=== PATIENT | female | born 1970 | race Caucasian/White ===

== ENCOUNTER 2021-09-13 12:04 | Inpatient (IN) | payer SELFPAY ==
[2021-09-13 12:48] LABS: Analyzer IN Cardio ER; Base Excess (BEa) -3.7 mEq/L (-2.0 to +3.0); CO2 Tension 32.5 mmHg (35.0-45.0); Calcium, Ionized (arterial) 1.06 mmol/L (1.12-1.30); Carboxyhemoglobin (COHb) 0.3 gm% (0.0-3.0); Hemoglobin (Hb) 13.4 g/dL (12.0-16.0); Potassium - ABG Lab 2.77 mmol/L (3.70-5.30); pH, Arterial 7.41 (7.35-7.45)
[2021-09-13 13:01] LABS: Puncture Site LRA
[2021-09-13 13:02] LABS: ALV-art Gradient 212.875 mmHg (0-20)
[2021-09-13] MEDS ORDERED: Propofol 1,000 MG/100 ML VIAL IV ONE (13:05)
[2021-09-13 13:09] LABS: Hemoglobin 13.3 g/dL (12.0-16.0); Mean Corpuscular HGB CONC 33.1 g/dL (32.0-36.0); Mean Corpuscular Hemoglobin 28.4 pg (27.0-31.0); Mean Corpuscular Volume 85.8 fL (78.0-98.0); Mean Platelet Volume 8.6 fL (7.4-10.4); Platelet Count 227 thou/uL (130-400); RBC Distribution Width 13.9 % (11.5-14.5); Red Blood Cell (RBC) Count 4.67 mill/uL (4.20-5.40); White Blood Cell (WBC) Count 20.3 thou/uL (4.8-10.8)
[2021-09-13 13:15] LABS: Bilirubin Negative (Negative); Blood, Urine 3+ (Negative); Clarity Turbid (Clear); Glucose, Urine (Dipstick) 150 mg/dL (Negative); Ketone, Urine Negative (Negative); Leukocyte Negative Leu/uL (Negative); Nitrite Negative (Negative); Protein, Urine (Dipstick) 100 mg/dL (Neg-Trace); Specific Gravity, Urine 1.017 (1.002-1.036); Urobilinogen Normal mg/dL (Less than 2); pH, Urine 6.5 (5.0-9.0)
[2021-09-13 13:20] LABS: Bacteria/HPF 1+ HPF (None Seen)
[2021-09-13 13:21] LABS: Transitional Epithelial 0-3 HPF (None Seen); WBC/HPF 0-3 HPF (0-3)
[2021-09-13 13:31] LABS: Band 17 % (5-11); Lymphocytes 3 % (21-51); MDiff Complete? YES; Metamyelocyte 1 % (0-0); Monocytes 9 % (0-10); Neutrophil 70 % (42-75); Platelet Morphology Comment Appears Adequate; RBC Morphology Normal
[2021-09-13 13:44] LABS: ALT (SGPT) 38 U/L (8-55); AST (SGOT) 71 U/L (5-34); Albumin 3.3 g/dL (3.5-5.0); Alkaline Phosphatase 94 U/L (40-110); Anion Gap 17 mmol/L (10-20); BUN (Urea Nitrogen) 45 mg/dL (9.8-20.1); Bilirubin, Total 1.8 mg/dL (0.2-1.2); Calc. Creatinine Clearance 0 mL/min (70-130); Calcium 8.5 mg/dL (7.8-10.44); Carbon Dioxide 22 mmol/L (22-29); Chloride 104 mmol/L (98-107); Globulin 2.5 g/dL (2.4-3.5); Glucose 134 mg/dL (70-105); Magnesium 1.9 mg/dL (1.6-2.6); Potassium 3.4 mmol/L (3.5-5.1); Protein, Total 5.8 g/dL (6.0-8.3); Sodium 140 mmol/L (136-145)
[2021-09-13 13:52] LABS: INR-International Normal Ratio 1.3; Prothrombin Time 16.2 sec (12.0-14.7)
[2021-09-13] MEDS ORDERED: Iopamidol-370 76% 500 ML 1 ML ONE (13:53)
[2021-09-13 14:03] LABS: CK (CPK) 5235 U/L (29-168)
[2021-09-13] MEDS ORDERED: Ventilator Sedation Protocol 1 EACH FS SCH (14:15)
[2021-09-13] MEDS ORDERED: Ondansetron PF 4 MG/2 ML Vial IVP PRN (14:15)
[2021-09-13] MEDS: Sodium Chloride 0.9% 1,000 ML IV SCH (14:30)
[2021-09-13 16:38] LABS: Lactic Acid 2.5 mmol/L (0.5-2.2)
[2021-09-13] MEDS ORDERED: Morphine 4 MG/ML VIAL SLOW IVP PRN (17:00)
[2021-09-13] MEDS ORDERED: Fentanyl CADD 100 ML IV SCH (17:00)
[2021-09-13] MEDS ORDERED: Piperacillin/Tazobactam 3.375 GM in Sodium Chloride 0.9% 100 ML IVPB SCH ×2 (17:00→18:00)
[2021-09-13] MEDS ORDERED: Propofol BOLUS 1,000 MG/100 ML VIAL IV PRN (17:00)
[2021-09-13] MEDS ORDERED: DISCONTINUE PREVIOUS NARCOTIC PAIN MEDICATIONS AND BENZODIAZEPINES FS SCH (17:00)
[2021-09-13] MEDS ORDERED: Propofol 1,000 MG/100 ML VIAL IV PRN (17:00)
[2021-09-13] MEDS ORDERED: Fentanyl BOLUS 250 ML IVPB PRN (17:00)
[2021-09-13] MEDS ORDERED: Lorazepam 2 MG/ML VIAL SLOW IVP PRN (17:00)
[2021-09-13 17:05] LABS: Troponin I 0.413 ng/mL (< 0.028)
[2021-09-13] MEDS ORDERED: Electrolyte Replacement Protocol 1 EACH FS ONE (17:06)
[2021-09-13] MEDS: hydrALAZINE 20 MG/ML VIAL SLOW IVP PRN ×2 (17:09→20:18)
[2021-09-13 20:17] LABS: Critical Call Chem Troponin I RESULT DECREASING; Troponin I 0.334 ng/mL (< 0.028)
[2021-09-13 20:43] LABS: Amphetamine Detected (NotDetected); Barbiturates Screen Not Detected (NotDetected); Benzodiazepine Screen Not Detected (NotDetected); Cocaine Metabolite Screen Not Detected (NotDetected); Methadone Not Detected (NotDetected); Methamphetamine Detected (NotDetected); Opiate Screen Not Detected (NotDetected); Oxycodone Screen Not Detected (NotDetected); Phencyclidine (PCP) Not Detected (NotDetected); THC/Cannabinoid Screen Not Detected (NotDetected); Tricyclic Screen Not Detected (NotDetected)
[2021-09-13] MEDS: Piperacillin/Tazobactam 3.375 GM in Sodium Chloride 0.9% 100 ML IVPB SCH (20:54)
[2021-09-13 21:32] LABS: SARS-CoV-2 NAA Rapid Test Not Detected (NotDetected)
[2021-09-13] MEDS: Labetalol HCl 100 MG/20 ML VIAL SLOW IVP PRN ×2 (21:45→23:31)
[2021-09-14] MEDS: Labetalol HCl 100 MG/20 ML VIAL SLOW IVP PRN ×3 (01:03→19:36)
[2021-09-14 03:19] LABS: #Lymphocytes 1.2 thou/uL (1.20-3.40); #Monocytes 1.4 thou/uL (0.11-0.59); #Neutrophils 17.8 thou/uL (1.40-6.50); %Eosinophils 0.1 % (0.0-10.0); %Monocytes 6.9 % (0.0-10.0); Mean Corpuscular HGB CONC 33.6 g/dL (32.0-36.0); Mean Corpuscular Hemoglobin 28.4 pg (27.0-31.0); Mean Corpuscular Volume 84.6 fL (78.0-98.0); Mean Platelet Volume 8.8 fL (7.4-10.4); Platelet Count 247 thou/uL (130-400); RBC Distribution Width 13.9 % (11.5-14.5); Red Blood Cell (RBC) Count 4.59 mill/uL (4.20-5.40); White Blood Cell (WBC) Count 20.4 thou/uL (4.8-10.8)
[2021-09-14 03:35] LABS: Lactic Acid 1.6 mmol/L (0.5-2.2)
[2021-09-14 03:40] LABS: ALT (SGPT) 55 U/L (8-55); AST (SGOT) 74 U/L (5-34); Albumin 3.3 g/dL (3.5-5.0); Alkaline Phosphatase 91 U/L (40-110); Anion Gap 18 mmol/L (10-20); BUN (Urea Nitrogen) 52 mg/dL (9.8-20.1); Bilirubin, Total 1.7 mg/dL (0.2-1.2); Calc. Creatinine Clearance 35 mL/min (70-130); Calcium 8.4 mg/dL (7.8-10.44); Carbon Dioxide 23 mmol/L (22-29); Chloride 107 mmol/L (98-107); Globulin 2.8 g/dL (2.4-3.5); Glucose 129 mg/dL (70-105); Protein, Total 6.1 g/dL (6.0-8.3); Sodium 145 mmol/L (136-145)
[2021-09-14 03:45] LABS: Potassium 2.8 mmol/L (3.5-5.1)
[2021-09-14 03:54] LABS: CK (CPK) 4544 U/L (29-168)
[2021-09-14] MEDS: Piperacillin/Tazobactam 3.375 GM in Sodium Chloride 0.9% 100 ML IVPB SCH ×3 (05:42→21:54)
[2021-09-14] MEDS: Sodium Chloride 0.9% 1,000 ML IV SCH (05:44)
[2021-09-14 07:25] LABS: Actual Bicarbonate (HCO3a) 20.7 mEq/L (22-28); Base Excess (BEa) -0.3 mEq/L (-2.0 to +3.0); Calcium, Ionized (arterial) 1.05 mmol/L (1.12-1.30); Carboxyhemoglobin (COHb) 0.3 gm% (0.0-3.0); Hemoglobin (Hb) 13.2 g/dL (12.0-16.0); Potassium - ABG Lab 2.63 mmol/L (3.70-5.30); pH, Arterial 7.54 (7.35-7.45)
[2021-09-14 07:26] LABS: CO2 Tension 24.8 mmHg (35.0-45.0); Puncture Site LRA
[2021-09-14] MEDS: Potassium Chloride 20 MEQ in Premix Bag 1 BAG IVPB SCH ×2 (07:58→11:35)
[2021-09-14] MEDS: Pantoprazole 40 MG VIAL IVP SCH (10:18)
[2021-09-14] MEDS: Metoclopramide HCl 10 MG/2 ML VIAL IVP SCH ×2 (10:19→17:07)
[2021-09-14] MEDS: Thiamine HCl 200 MG/2 ML VIAL SLOW IVP SCH (10:22)
[2021-09-14] MEDS: Dextrose 5 %-0.45 % NaCl 1,000 ML IV SCH ×2 (10:23→16:40)
[2021-09-14 11:48] VITALS: BMI 32.7
[2021-09-14] MEDS ORDERED: Acetaminophen 325 MG TAB PER TUBE PRN (13:00)
[2021-09-14 15:20] LABS: Potassium 3.2 mmol/L (3.5-5.1)
[2021-09-14] MEDS: Insulin Regular 300 UNITS/3 ML VIAL SC PRN (16:42)
[2021-09-14] MEDS: hydrALAZINE 20 MG/ML VIAL SLOW IVP PRN ×2 (19:50→20:27)
[2021-09-14] MEDS ORDERED: niCARdipine 25 MG in Sodium Chloride 0.9% 250 ML 250 ML IVPB SCH (20:15)
[2021-09-14] MEDS ORDERED: niCARdipine 20MG In NaCl 20 MG/200 ML BAG IVPB SCH (20:15)
[2021-09-14] MEDS ORDERED: niCARdipine 40MG In NaCl 40 MG/200 ML BAG IVPB SCH (20:15)
[2021-09-14] MEDS ORDERED: niCARdipine 50 MG in Sodium Chloride 0.9% 250 ML 230 ML IV SCH (20:15)
[2021-09-14] MEDS ORDERED: Norepinephrine 8 MG/0.9% NS 250 ML ONE ×2 (21:05→21:12)
[2021-09-14] MEDS ORDERED: Norepinephrine 8 MG/0.9% NS 250 ML IVPB SCH (21:30)
[2021-09-15] MEDS: Dextrose 5 %-0.45 % NaCl 1,000 ML IV SCH (00:03)
[2021-09-15] MEDS: Metoclopramide HCl 10 MG/2 ML VIAL IVP SCH ×2 (00:03→05:33)
[2021-09-15] MEDS: Mannitol 12.5 GM/50 ML SLOW IVP SCH ×2 (00:45→07:14)
[2021-09-15 02:05] VITALS: BP 143/91
[2021-09-15 02:19] VITALS: TEMP 96.6
[2021-09-15 05:13] LABS: ALT (SGPT) 54 U/L (8-55); AST (SGOT) 42 U/L (5-34); Albumin 3.4 g/dL (3.5-5.0); Alkaline Phosphatase 106 U/L (40-110); Anion Gap 13 mmol/L (10-20); BUN (Urea Nitrogen) 47 mg/dL (9.8-20.1); Calc. Creatinine Clearance 38 mL/min (70-130); Calcium 8.8 mg/dL (7.8-10.44); Carbon Dioxide 27 mmol/L (22-29); Chloride 111 mmol/L (98-107); Estimated GFR 21; Globulin 3.3 g/dL (2.4-3.5); Glucose 217 mg/dL (70-105); Potassium 3.1 mmol/L (3.5-5.1); Protein, Total 6.7 g/dL (6.0-8.3); Sodium 148 mmol/L (136-145)
[2021-09-15 05:15] LABS: Hemoglobin 12.5 g/dL (12.0-16.0); Lymphocytes 6 % (21-51); MDiff Complete? YES; Mean Corpuscular HGB CONC 32.4 g/dL (32.0-36.0); Mean Corpuscular Hemoglobin 28.4 pg (27.0-31.0); Mean Corpuscular Volume 87.6 fL (78.0-98.0); Mean Platelet Volume 8.9 fL (7.4-10.4); Monocytes 8 % (0-10); Neutrophil 86 % (42-75); Platelet Count 281 thou/uL (130-400); Platelet Morphology Comment Appears Adequate; RBC Distribution Width 14.2 % (11.5-14.5); RBC Morphology Normal; White Blood Cell (WBC) Count 23.1 thou/uL (4.8-10.8)
[2021-09-15] MEDS: Piperacillin/Tazobactam 3.375 GM in Sodium Chloride 0.9% 100 ML IVPB SCH (05:32)
[2021-09-15] MEDS: Insulin Regular 300 UNITS/3 ML VIAL SC PRN ×2 (06:40→10:16)
[2021-09-15 07:39] LABS: Base Excess (BEa) -1.6 mEq/L (-2.0 to +3.0); CO2 Tension 48.9 mmHg (35.0-45.0); Calcium, Ionized (arterial) 1.18 mmol/L (1.12-1.30); Carboxyhemoglobin (COHb) 0.6 gm% (0.0-3.0); Hemoglobin (Hb) 15.4 g/dL (12.0-16.0); O2 Tension (PaO2), arterial 115.5 mmHg (80.0-100.0); Potassium - ABG Lab 3.15 mmol/L (3.70-5.30); pH, Arterial 7.33 (7.35-7.45)
[2021-09-15] MEDS ORDERED: Dextrose 5% in Water 1,000 ML IV SCH (08:00)
[2021-09-15] MEDS ORDERED: Potassium Chloride 40 MEQ in Premix Bag 1 BAG IVPB SCH (08:00)
[2021-09-15 08:05] LABS: ALV-art Gradient 72.925 mmHg (0-20); Puncture Site RRA
[2021-09-15] MEDS: Pantoprazole 40 MG VIAL IVP SCH (09:48)
[2021-09-15] MEDS: Thiamine HCl 200 MG/2 ML VIAL SLOW IVP SCH (13:06)
== END 2021-09-15 12:00 | disposition expired | DRG 64 ==
LOC: ERS 12:04 → CCU 13:49
PROVIDERS: ADMIT Specialist; ATTEND Hospitalist
PROC: 0BH17EZ Insertion of Endotracheal Airway into Trachea, Via Natural or Artificial Opening (ICD-10-PCS; principal; 2021-09-13)
PROC: 5A1945Z Respiratory Ventilation, 24-96 Consecutive Hours (ICD-10-PCS; 2021-09-13)
PROC: 3E03329 Introduction of Other Anti-infective into Peripheral Vein, Percutaneous Approach (ICD-10-PCS; 2021-09-13)
PROC: 3E033XZ Introduction of Vasopressor into Peripheral Vein, Percutaneous Approach (ICD-10-PCS; 2021-09-13)
PROC: 0D9670Z Drainage of Stomach with Drainage Device, Via Natural or Artificial Opening (ICD-10-PCS; 2021-09-13)
PROC: 06HY33Z Insertion of Infusion Device into Lower Vein, Percutaneous Approach (ICD-10-PCS; 2021-09-14)
PROC: 3E043XZ Introduction of Vasopressor into Central Vein, Percutaneous Approach (ICD-10-PCS; 2021-09-14)
PROC: 03HY32Z Insertion of Monitoring Device into Upper Artery, Percutaneous Approach (ICD-10-PCS; 2021-09-15)
DX: I61.5 Nontraumatic intracerebral hemorrhage, intraventricular (principal); A41.9 Sepsis, unspecified organism; J96.01 Acute respiratory failure with hypoxia; G93.41 Metabolic encephalopathy; R65.20 Severe sepsis without septic shock; J69.0 Pneumonitis due to inhalation of food and vomit; G93.5 Compression of brain; G93.6 Cerebral edema; E87.2 Acidosis; N17.9 Acute kidney failure, unspecified; M62.82 Rhabdomyolysis; N39.0 Urinary tract infection, site not specified; I24.8 Other forms of acute ischemic heart disease; E87.1 Hypo-osmolality and hyponatremia; Z51.5 Encounter for palliative care; Z20.822 Contact with and (suspected) exposure to COVID-19; F41.9 Anxiety disorder, unspecified; F32.A Depression, unspecified; I10 Essential (primary) hypertension; E87.6 Hypokalemia; Z78.1 Physical restraint status; Z28.311 Partially vaccinated for COVID-19; Z98.1 Arthrodesis status; Z98.890 Other specified postprocedural states; L89.520 Pressure ulcer of left ankle, unstageable; L89.159 Pressure ulcer of sacral region, unspecified stage; L89.109 Pressure ulcer of unspecified part of back, unspecified stage
CPT/HCPCS: 36415; 36416; 36600; 70450; 71045; 71260; 72125; 74177; 78610; 80053; 80306; 81015; 82550; 82805; 83605; 83735; 83880; 83930; 84443; 85025; 87086; 93005; 94002; 94003; 96374; 97139; A9521; C9113; J0360; J1815; J2543; J2704; J2765; J3411; J3480; J3490; J7042; J7050; J7070; J7799; Q9967

== ENCOUNTER 2021-09-15 12:00 | Day surgery (SDC) | payer OTHER ==
[2021-09-15] MEDS ORDERED: Refresh Lacri-lube Opth Oint 7 GM TUBE FS SCH (14:45)
[2021-09-15] MEDS ORDERED: Hydrocortisone Sod Succ/PF 500 mg/4 ml Vial SLOW IVP SCH ×2 (14:45)
[2021-09-15 14:48] LABS: Actual Bicarbonate (HCO3a) 25.8 mEq/L (22-28); Base Excess (BEa) 0.3 mEq/L (-2.0 to +3.0); CO2 Tension 45.1 mmHg (35.0-45.0); Calcium, Ionized (arterial) 1.22 mmol/L (1.12-1.30); Carboxyhemoglobin (COHb) 0.6 gm% (0.0-3.0); Hemoglobin (Hb) 12.4 g/dL (12.0-16.0); O2 Tension (PaO2), arterial 106.3 mmHg (80.0-100.0); Potassium - ABG Lab 3.48 mmol/L (3.70-5.30); pH, Arterial 7.38 (7.35-7.45)
[2021-09-15 14:49] LABS: ALV-art Gradient 86.875 mmHg (0-20); Puncture Site RRA
[2021-09-15 14:57] LABS: Hemoglobin 11.7 g/dL (12.0-16.0); Mean Corpuscular HGB CONC 31.5 g/dL (32.0-36.0); Mean Corpuscular Hemoglobin 27.7 pg (27.0-31.0); Mean Corpuscular Volume 88.1 fL (78.0-98.0); Mean Platelet Volume 8.8 fL (7.4-10.4); Platelet Count 253 thou/uL (130-400); RBC Distribution Width 14.3 % (11.5-14.5); Red Blood Cell (RBC) Count 4.23 mill/uL (4.20-5.40); White Blood Cell (WBC) Count 16.4 thou/uL (4.8-10.8)
[2021-09-15 15:14] LABS: Band 6 % (5-11); INR-International Normal Ratio 1.2; Lymphocytes 8 % (21-51); MDiff Complete? YES; Metamyelocyte 1 % (0-0); Monocytes 4 % (0-10); Neutrophil 81 % (42-75); PTT 30.7 sec (22.9-36.1); Platelet Morphology Comment Appears Adequate; Polychromasia SLIGHT = 2-3 cells (100X) (0-2/hpf); Prothrombin Time 15.8 sec (12.0-14.7)
[2021-09-15 15:16] LABS: Lactic Acid 0.9 mmol/L (0.5-2.2)
[2021-09-15 15:19] LABS: Phosphorus 3.1 mg/dL (2.3-4.7)
[2021-09-15] MEDS: Phytonadione 10 MG/ML AMP SLOW IVP SCH ×2 (15:19→19:24)
[2021-09-15 15:22] LABS: ALT (SGPT) 47 U/L (8-55); AST (SGOT) 29 U/L (5-34); Albumin 3.3 g/dL (3.5-5.0); Alkaline Phosphatase 96 U/L (40-110); Anion Gap 14 mmol/L (10-20); BUN (Urea Nitrogen) 43 mg/dL (9.8-20.1); Bilirubin, Total 0.7 mg/dL (0.2-1.2); Calc. Creatinine Clearance 0 mL/min (70-130); Carbon Dioxide 25 mmol/L (22-29); Chloride 120 mmol/L (98-107); Estimated GFR 26; Globulin 3.1 g/dL (2.4-3.5); Glucose 160 mg/dL (70-105); Magnesium 2.9 mg/dL (1.6-2.6); Potassium 3.5 mmol/L (3.5-5.1); Protein, Total 6.4 g/dL (6.0-8.3); Sodium 155 mmol/L (136-145)
[2021-09-15 15:26] LABS: Hemoglobin A1c 5.5 % (4.0-6.0)
[2021-09-15 15:37] LABS: Bilirubin, Direct 0.3 mg/dL (0.1-0.3)
[2021-09-15 15:47] LABS: Bacteria/HPF None Seen HPF (None Seen); Bilirubin Negative (Negative); Blood, Urine 1+ (Negative); Clarity Clear (Clear); Glucose, Urine (Dipstick) Normal (Negative); Ketone, Urine Negative (Negative); Leukocyte Negative Leu/uL (Negative); Nitrite Negative (Negative); Protein, Urine (Dipstick) Negative (Neg-Trace); RBC/HPF 0-3 HPF (0-3); Specific Gravity, Urine 1.014 (1.002-1.036); Squamous Epithelial None Seen HPF (0-3); Urobilinogen Normal mg/dL (Less than 2); WBC/HPF 0-3 HPF (0-3); pH, Urine 5.5 (5.0-9.0)
[2021-09-15 16:11] VITALS: BMI 30.6
[2021-09-15] MEDS ORDERED: Sodium Phosphate 20 MMOL in Sodium Chloride 0.9% 100 ML IVPB SCH (16:30)
[2021-09-15] MEDS ORDERED: Calcium Gluconate 9.2 MEQ in Sodium Chloride 0.9% 100 ML IVPB SCH (16:30)
[2021-09-15] MEDS ORDERED: SODIUM PHOSPHATE IVPB SCH (16:30)
[2021-09-15] MEDS ORDERED: Calcium Gluconate 13.8 MEQ in Sodium Chloride 0.9% 100 ML IVPB SCH (16:30)
[2021-09-15] MEDS ORDERED: POTASSIUM PHOSPHATE IVPB SCH (16:30)
[2021-09-15] MEDS ORDERED: Magnesium 2 GM/50 ML(in water) 2 GM in Premix Bag 1 BAG IVPB SCH (16:30)
[2021-09-15] MEDS ORDERED: Magnesium 2 GM/50 ML(in water) 4 GM in Premix Bag 1 BAG IVPB SCH (16:30)
[2021-09-15] MEDS ORDERED: Sodium Phosphate 30 MMOL in Sodium Chloride 0.9% 100 ML IVPB SCH (16:30)
[2021-09-15] MEDS ORDERED: Potassium Phosphate 30 MMOL in Sodium Chloride 0.9% 100 ML IVPB SCH (16:30)
[2021-09-15] MEDS ORDERED: SODIUM CHLORIDE 0.9% IVPB SCH ×2 (16:30)
[2021-09-15] MEDS ORDERED: Potassium Chloride 20 MEQ in Premix Bag 1 BAG IVPB SCH (16:45)
[2021-09-15] MEDS: Potassium Chloride 20 MEQ in Premix Bag 1 BAG IVPB SCH ×4 (16:51→17:35)
[2021-09-15] MEDS: Piperacillin/Tazobactam 3.375 GM in Sodium Chloride 0.9% 100 ML IVPB SCH ×2 (16:58→23:12)
[2021-09-15] MEDS ORDERED: Calcium Gluconate 9.2 MEQ in Sodium Chloride 0.9% 100 ML IVPB PRN (17:45)
[2021-09-15] MEDS ORDERED: Magnesium 2 GM/50 ML(in water) 2 GM in Premix Bag 1 BAG IVPB PRN (17:45)
[2021-09-15] MEDS ORDERED: Potassium Chloride 20 MEQ in Premix Bag 1 BAG IVPB PRN ×3 (17:45)
[2021-09-15] MEDS ORDERED: Magnesium 2 GM/50 ML(in water) 4 GM in Premix Bag 1 BAG IVPB PRN (17:45)
[2021-09-15] MEDS ORDERED: Calcium Gluconate 13.8 MEQ in Sodium Chloride 0.9% 100 ML IVPB PRN (17:45)
[2021-09-15 18:29] VITALS: TEMP 94.5
[2021-09-15] MEDS: Albuterol Sulfate 2.5 mg/0.5 ml Neb NEB SCH ×2 (19:00→21:44)
[2021-09-15 21:38] LABS: INR-International Normal Ratio 1.2; PTT 32.7 sec (22.9-36.1); Prothrombin Time 15.5 sec (12.0-14.7)
[2021-09-15 21:41] LABS: Band 12 % (5-11); Hemoglobin 12.3 g/dL (12.0-16.0); Lymphocytes 4 % (21-51); MDiff Complete? YES; Mean Corpuscular HGB CONC 31.8 g/dL (32.0-36.0); Mean Corpuscular Hemoglobin 28.1 pg (27.0-31.0); Mean Corpuscular Volume 88.3 fL (78.0-98.0); Monocytes 2 % (0-10); Neutrophil 82 % (42-75); Platelet Count 301 thou/uL (130-400); RBC Distribution Width 14.4 % (11.5-14.5); Red Blood Cell (RBC) Count 4.39 mill/uL (4.20-5.40); White Blood Cell (WBC) Count 20.2 thou/uL (4.8-10.8)
[2021-09-15 21:43] LABS: Lactic Acid 1.3 mmol/L (0.5-2.2)
[2021-09-15 21:47] LABS: ALT (SGPT) 51 U/L (8-55); AST (SGOT) 28 U/L (5-34); Albumin 3.6 g/dL (3.5-5.0); Alkaline Phosphatase 101 U/L (40-110); Anion Gap 16 mmol/L (10-20); BUN (Urea Nitrogen) 41 mg/dL (9.8-20.1); Bilirubin, Direct 0.4 mg/dL (0.1-0.3); Bilirubin, Total 0.9 mg/dL (0.2-1.2); CK (CPK) 948 U/L (29-168); Calc. Creatinine Clearance 47 mL/min (70-130); Calcium 8.8 mg/dL (7.8-10.44); Carbon Dioxide 23 mmol/L (22-29); Chloride 121 mmol/L (98-107); Estimated GFR 28; Globulin 2.6 g/dL (2.4-3.5); Glucose 234 mg/dL (70-105); Lipase 40 U/L (8-78); Magnesium 2.8 mg/dL (1.6-2.6); Phosphorus 2.8 mg/dL (2.3-4.7); Potassium 3.8 mmol/L (3.5-5.1); Protein, Total 6.2 g/dL (6.0-8.3); Sodium 156 mmol/L (136-145)
[2021-09-15 21:50] LABS: CKMB 4.8 ng/mL (0-6.6); Troponin I 0.191 ng/mL (< 0.028)
[2021-09-15 22:13] LABS: Actual Bicarbonate (HCO3a) 24.8 mEq/L (22-28); Base Excess (BEa) 1.8 mEq/L (-2.0 to +3.0); CO2 Tension 33.6 mmHg (35.0-45.0); Carboxyhemoglobin (COHb) 0.1 gm% (0.0-3.0); Hemoglobin (Hb) 12.6 g/dL (12.0-16.0); O2 Tension (PaO2), arterial 433.5 mmHg (80.0-100.0); Potassium - ABG Lab 3.65 mmol/L (3.70-5.30); pH, Arterial 7.49 (7.35-7.45)
[2021-09-15 22:26] LABS: Puncture Site Arterial Line
[2021-09-15] MEDS: Hydrocortisone Sod Succ/PF 100 mg/2 ml Vial IVP SCH (22:35)
[2021-09-15] MEDS: Sodium Chloride 0.45% 1,000 ML IV SCH (23:05)
[2021-09-16] MEDS: Albuterol Sulfate 2.5 mg/0.5 ml Neb NEB SCH ×6 (02:25→21:49)
[2021-09-16 03:14] LABS: Actual Bicarbonate (HCO3a) 22.1 mEq/L (22-28); Base Excess (BEa) -0.6 mEq/L (-2.0 to +3.0); CO2 Tension 30.5 mmHg (35.0-45.0); Calcium, Ionized (arterial) 1.19 mmol/L (1.12-1.30); Carboxyhemoglobin (COHb) 0.1 gm% (0.0-3.0); Hemoglobin (Hb) 12.3 g/dL (12.0-16.0); Potassium - ABG Lab 3.68 mmol/L (3.70-5.30); pH, Arterial 7.48 (7.35-7.45)
[2021-09-16 03:17] LABS: ALV-art Gradient 254.875 mmHg (0-20); Puncture Site Arterial Line
[2021-09-16 04:01] LABS: #Lymphocytes 0.9 thou/uL (1.20-3.40); #Monocytes 0.9 thou/uL (0.11-0.59); #Neutrophils 15.2 thou/uL (1.40-6.50); %Basophils 0.2 % (0.0-1.0); %Lymphocytes 5.4 % (21.0-51.0); %Neutrophils 89.4 % (42.0-75.0); Hemoglobin 11.7 g/dL (12.0-16.0); Mean Corpuscular HGB CONC 32.2 g/dL (32.0-36.0); Mean Corpuscular Hemoglobin 28.5 pg (27.0-31.0); Mean Corpuscular Volume 88.5 fL (78.0-98.0); Mean Platelet Volume 9.1 fL (7.4-10.4); Platelet Count 254 thou/uL (130-400); RBC Distribution Width 14.3 % (11.5-14.5)
[2021-09-16 04:17] LABS: Lactic Acid 1.7 mmol/L (0.5-2.2)
[2021-09-16 04:19] LABS: RBC/HPF 0-3 HPF (0-3); Squamous Epithelial 0-3 HPF (0-3)
[2021-09-16 04:22] LABS: ALT (SGPT) 44 U/L (8-55); AST (SGOT) 21 U/L (5-34); Albumin 3.5 g/dL (3.5-5.0); Alkaline Phosphatase 94 U/L (40-110); Anion Gap 18 mmol/L (10-20); BUN (Urea Nitrogen) 43 mg/dL (9.8-20.1); Bacteria/HPF 1+ HPF (None Seen); Bilirubin, Direct 0.3 mg/dL (0.1-0.3); Bilirubin, Total 0.7 mg/dL (0.2-1.2); CK (CPK) 581 U/L (29-168); Calc. Creatinine Clearance 48 mL/min (70-130); Calcium 9.3 mg/dL (7.8-10.44); Carbon Dioxide 23 mmol/L (22-29); Chloride 123 mmol/L (98-107); Estimated GFR 29; Globulin 3.3 g/dL (2.4-3.5); Glucose 205 mg/dL (70-105); Lipase 44 U/L (8-78); Magnesium 2.7 mg/dL (1.6-2.6); Phosphorus 3.3 mg/dL (2.3-4.7); Potassium 3.7 mmol/L (3.5-5.1); Protein, Total 6.8 g/dL (6.0-8.3); Sodium 160 mmol/L (136-145)
[2021-09-16 04:26] LABS: CKMB 3.1 ng/mL (0-6.6); Troponin I 0.241 ng/mL (< 0.028)
[2021-09-16 04:27] LABS: INR-International Normal Ratio 1.2; PTT 32.3 sec (22.9-36.1); Prothrombin Time 15.8 sec (12.0-14.7)
[2021-09-16] MEDS: Piperacillin/Tazobactam 3.375 GM in Sodium Chloride 0.9% 100 ML IVPB SCH ×3 (05:54→19:36)
[2021-09-16] MEDS: Hydrocortisone Sod Succ/PF 100 mg/2 ml Vial IVP SCH ×3 (05:54→21:14)
[2021-09-16] MEDS: HUMULIN R 100 UNITS in Sodium Chloride 0.9% 100 ML IVPB SCH (05:54)
[2021-09-16] MEDS ORDERED: Iopamidol 370 76% 100 ML VIAL ONE (08:51)
[2021-09-16] MEDS ORDERED: Iopamidol 370 76% 50 ML VIAL FS ONE (08:51)
[2021-09-16 09:03] LABS: Actual Bicarbonate (HCO3a) 24.7 mEq/L (22-28); Base Excess (BEa) 0.6 mEq/L (-2.0 to +3.0); CO2 Tension 37.8 mmHg (35.0-45.0); Carboxyhemoglobin (COHb) 0.3 gm% (0.0-3.0); Hemoglobin (Hb) 11.5 g/dL (12.0-16.0); O2 Tension (PaO2), arterial 365.9 mmHg (80.0-100.0); pH, Arterial 7.43 (7.35-7.45)
[2021-09-16 09:14] LABS: Puncture Site Arterial Line
[2021-09-16] MEDS: Sodium Chloride 0.45% 1,000 ML IV SCH ×2 (10:55→21:14)
[2021-09-16 12:14] LABS: #Monocytes 1.1 thou/uL (0.11-0.59); #Neutrophils 15.4 thou/uL (1.40-6.50); %Basophils 0.1 % (0.0-1.0); %Lymphocytes 5.9 % (21.0-51.0); %Monocytes 6.2 % (0.0-10.0); %Neutrophils 87.7 % (42.0-75.0); Hemoglobin 11.1 g/dL (12.0-16.0); Mean Corpuscular HGB CONC 31.8 g/dL (32.0-36.0); Mean Corpuscular Hemoglobin 28.4 pg (27.0-31.0); Mean Corpuscular Volume 89.5 fL (78.0-98.0); Mean Platelet Volume 8.9 fL (7.4-10.4); Platelet Count 242 thou/uL (130-400); RBC Distribution Width 14.2 % (11.5-14.5); White Blood Cell (WBC) Count 17.5 thou/uL (4.8-10.8)
[2021-09-16 12:21] LABS: Actual Bicarbonate (HCO3a) 24.6 mEq/L (22-28); Base Excess (BEa) 0.7 mEq/L (-2.0 to +3.0); Calcium, Ionized (arterial) 1.19 mmol/L (1.12-1.30); Carboxyhemoglobin (COHb) 0.1 gm% (0.0-3.0); Hemoglobin (Hb) 11.4 g/dL (12.0-16.0); O2 Tension (PaO2), arterial 100.7 mmHg (80.0-100.0); Potassium - ABG Lab 4.07 mmol/L (3.70-5.30); pH, Arterial 7.44 (7.35-7.45)
[2021-09-16 12:35] LABS: INR-International Normal Ratio 1.3; Prothrombin Time 16.3 sec (12.0-14.7)
[2021-09-16 12:36] LABS: Bilirubin, Direct 0.3 mg/dL (0.1-0.3); PTT 31.5 sec (22.9-36.1); Phosphorus 3.9 mg/dL (2.3-4.7)
[2021-09-16 12:38] LABS: ALT (SGPT) 40 U/L (8-55); AST (SGOT) 18 U/L (5-34); Albumin 3.4 g/dL (3.5-5.0); Alkaline Phosphatase 98 U/L (40-110); Anion Gap 15 mmol/L (10-20); BUN (Urea Nitrogen) 45 mg/dL (9.8-20.1); Bilirubin, Total 0.7 mg/dL (0.2-1.2); CK (CPK) 356 U/L (29-168); Calc. Creatinine Clearance 43 mL/min (70-130); Calcium 9.6 mg/dL (7.8-10.44); Carbon Dioxide 27 mmol/L (22-29); Chloride 121 mmol/L (98-107); Estimated GFR 27; Globulin 3.3 g/dL (2.4-3.5); Glucose 150 mg/dL (70-105); Potassium 4.2 mmol/L (3.5-5.1); Protein, Total 6.7 g/dL (6.0-8.3); Sodium 159 mmol/L (136-145)
[2021-09-16 12:39] LABS: Magnesium 2.8 mg/dL (1.6-2.6)
[2021-09-16 13:43] LABS: Bilirubin Negative (Negative); Blood, Urine Trace (Negative); Clarity Clear (Clear); Glucose, Urine (Dipstick) Normal (Negative); Ketone, Urine Negative (Negative); Leukocyte Negative Leu/uL (Negative); Nitrite Negative (Negative); Protein, Urine (Dipstick) 10 mg/dL (Neg-Trace); RBC/HPF 0-3 HPF (0-3); Specific Gravity, Urine 1.014 (1.002-1.036); Squamous Epithelial 0-3 HPF (0-3); Urobilinogen Normal mg/dL (Less than 2); WBC/HPF 0-3 HPF (0-3); pH, Urine 5.5 (5.0-9.0)
[2021-09-16 13:46] LABS: Bacteria/HPF 1+ HPF (None Seen); Urine Culture Reflex Yes Yes
[2021-09-16 14:09] LABS: Puncture Site Arterial Line
[2021-09-16] MEDS ORDERED: Labetalol HCl 100 MG/20 ML VIAL SLOW IVP PRN (14:11)
[2021-09-16 17:54] LABS: Actual Bicarbonate (HCO3a) 23.1 mEq/L (22-28); Base Excess (BEa) -0.8 mEq/L (-2.0 to +3.0); Calcium, Ionized (arterial) 1.17 mmol/L (1.12-1.30); Carboxyhemoglobin (COHb) 0.3 gm% (0.0-3.0); Hemoglobin (Hb) 10.3 g/dL (12.0-16.0); O2 Tension (PaO2), arterial 352.6 mmHg (80.0-100.0); Potassium - ABG Lab 3.73 mmol/L (3.70-5.30); pH, Arterial 7.44 (7.35-7.45)
[2021-09-16 17:55] LABS: Puncture Site Arterial Line
[2021-09-16 18:39] LABS: INR-International Normal Ratio 1.3; Lactic Acid 1.4 mmol/L (0.5-2.2); PTT 32.8 sec (22.9-36.1)
[2021-09-16 18:43] LABS: ALT (SGPT) 36 U/L (8-55); AST (SGOT) 16 U/L (5-34); Albumin 3.2 g/dL (3.5-5.0); Alkaline Phosphatase 91 U/L (40-110); Anion Gap 14 mmol/L (10-20); BUN (Urea Nitrogen) 48 mg/dL (9.8-20.1); Bilirubin, Direct 0.3 mg/dL (0.1-0.3); Bilirubin, Total 0.6 mg/dL (0.2-1.2); CK (CPK) 319 U/L (29-168); Calc. Creatinine Clearance 46 mL/min (70-130); Calcium 9.1 mg/dL (7.8-10.44); Carbon Dioxide 25 mmol/L (22-29); Chloride 122 mmol/L (98-107); Estimated GFR 29; Globulin 2.9 g/dL (2.4-3.5); Glucose 180 mg/dL (70-105); Magnesium 2.7 mg/dL (1.6-2.6); Phosphorus 3.9 mg/dL (2.3-4.7); Potassium 3.9 mmol/L (3.5-5.1); Protein, Total 6.1 g/dL (6.0-8.3); Sodium 157 mmol/L (136-145)
[2021-09-16 18:48] LABS: CKMB 1.8 ng/mL (0-6.6)
[2021-09-16 19:01] LABS: Bacteria/HPF None Seen HPF (None Seen); RBC/HPF 0-3 HPF (0-3); Squamous Epithelial None Seen HPF (0-3); WBC/HPF None Seen HPF (0-3)
[2021-09-16 19:02] LABS: Bilirubin Negative (Negative); Blood, Urine Trace (Negative); Glucose, Urine (Dipstick) Negative (Negative); Ketone, Urine Negative (Negative); Leukocyte Negative (Negative); Nitrite Negative (Negative); Protein, Urine (Dipstick) Negative (Neg-Trace); Urobilinogen 0.2 mg/dL (Less than 2); pH, Urine 5.5 (5.0-9.0)
[2021-09-16 19:05] LABS: Critical Call Chem Troponin I RESULT DECREASING
[2021-09-16 19:05] LABS: Clarity Clear (Clear)
[2021-09-16 19:06] LABS: Specific Gravity, Urine 1.023 (1.002-1.036)
[2021-09-16 22:05] LABS: #Lymphocytes 1.4 thou/uL (1.20-3.40); #Monocytes 1.4 thou/uL (0.11-0.59); #Neutrophils 14.8 thou/uL (1.40-6.50); %Eosinophils 0.1 % (0.0-10.0); %Lymphocytes 8.1 % (21.0-51.0); %Monocytes 7.7 % (0.0-10.0); %Neutrophils 84.1 % (42.0-75.0); Hemoglobin 10.2 g/dL (12.0-16.0); Mean Corpuscular HGB CONC 32.1 g/dL (32.0-36.0); Mean Corpuscular Hemoglobin 28.5 pg (27.0-31.0); Mean Corpuscular Volume 88.8 fL (78.0-98.0); Mean Platelet Volume 9.1 fL (7.4-10.4); Platelet Count 241 thou/uL (130-400); RBC Distribution Width 14.2 % (11.5-14.5); Red Blood Cell (RBC) Count 3.59 mill/uL (4.20-5.40); White Blood Cell (WBC) Count 17.7 thou/uL (4.8-10.8)
[2021-09-16 22:24] LABS: Actual Bicarbonate (HCO3a) 23.1 mEq/L (22-28); Base Excess (BEa) -0.5 mEq/L (-2.0 to +3.0); CO2 Tension 33.8 mmHg (35.0-45.0); Calcium, Ionized (arterial) 1.19 mmol/L (1.12-1.30); Carboxyhemoglobin (COHb) 0.3 gm% (0.0-3.0); Hemoglobin (Hb) 10.2 g/dL (12.0-16.0); O2 Tension (PaO2), arterial 365.4 mmHg (80.0-100.0); Potassium - ABG Lab 3.75 mmol/L (3.70-5.30); pH, Arterial 7.45 (7.35-7.45)
[2021-09-16 22:26] LABS: Puncture Site Arterial Line
[2021-09-16 23:56] LABS: #Neutrophils 13.5 thou/uL (1.40-6.50); %Basophils 0.2 % (0.0-1.0); %Eosinophils 0.1 % (0.0-10.0); %Lymphocytes 6.2 % (21.0-51.0); %Monocytes 6.4 % (0.0-10.0); %Neutrophils 87.1 % (42.0-75.0); Hemoglobin 10.3 g/dL (12.0-16.0); Mean Corpuscular HGB CONC 31.7 g/dL (32.0-36.0); Mean Corpuscular Hemoglobin 28.3 pg (27.0-31.0); Mean Corpuscular Volume 89.1 fL (78.0-98.0); Mean Platelet Volume 9.1 fL (7.4-10.4); Platelet Count 230 thou/uL (130-400); RBC Distribution Width 14.2 % (11.5-14.5); Red Blood Cell (RBC) Count 3.64 mill/uL (4.20-5.40); White Blood Cell (WBC) Count 15.5 thou/uL (4.8-10.8)
[2021-09-17 00:09] LABS: INR-International Normal Ratio 1.3; PTT 35.1 sec (22.9-36.1); Prothrombin Time 16.2 sec (12.0-14.7)
[2021-09-17 00:12] LABS: Lactic Acid 1.2 mmol/L (0.5-2.2)
[2021-09-17 00:20] LABS: ALT (SGPT) 36 U/L (8-55); AST (SGOT) 15 U/L (5-34); Albumin 3.2 g/dL (3.5-5.0); Alkaline Phosphatase 94 U/L (40-110); Anion Gap 16 mmol/L (10-20); BUN (Urea Nitrogen) 51 mg/dL (9.8-20.1); Bilirubin, Direct 0.3 mg/dL (0.1-0.3); Bilirubin, Total 0.6 mg/dL (0.2-1.2); CK (CPK) 256 U/L (29-168); Calc. Creatinine Clearance 45 mL/min (70-130); Calcium 9.3 mg/dL (7.8-10.44); Carbon Dioxide 24 mmol/L (22-29); Chloride 124 mmol/L (98-107); Estimated GFR 28; Globulin 3.1 g/dL (2.4-3.5); Glucose 163 mg/dL (70-105); Magnesium 2.8 mg/dL (1.6-2.6); Phosphorus 4.1 mg/dL (2.3-4.7); Potassium 3.8 mmol/L (3.5-5.1); Protein, Total 6.3 g/dL (6.0-8.3); Sodium 160 mmol/L (136-145)
[2021-09-17 00:21] LABS: CKMB 1.6 ng/mL (0-6.6)
[2021-09-17] MEDS: Albuterol Sulfate 2.5 mg/0.5 ml Neb NEB SCH ×6 (01:36→22:54)
[2021-09-17 01:57] LABS: Bilirubin Negative (Negative); Blood, Urine Trace (Negative); Clarity Clear (Clear); Glucose, Urine (Dipstick) Normal (Negative); Ketone, Urine Negative (Negative); Leukocyte Negative Leu/uL (Negative); Nitrite Negative (Negative); Protein, Urine (Dipstick) Negative (Neg-Trace); RBC/HPF 0-3 HPF (0-3); Specific Gravity, Urine 1.016 (1.002-1.036); Squamous Epithelial None Seen HPF (0-3); Urobilinogen Normal mg/dL (Less than 2); WBC/HPF 0-3 HPF (0-3); pH, Urine 5.5 (5.0-9.0)
[2021-09-17 01:59] LABS: Bacteria/HPF 1+ HPF (None Seen)
[2021-09-17] MEDS ORDERED: Potassium Chloride 20 MEQ in Premix Bag 1 BAG IVPB SCH (02:00)
[2021-09-17] MEDS: Piperacillin/Tazobactam 3.375 GM in Sodium Chloride 0.9% 100 ML IVPB SCH ×5 (05:21→23:12)
[2021-09-17] MEDS: Hydrocortisone Sod Succ/PF 100 mg/2 ml Vial IVP SCH ×3 (05:22→22:08)
[2021-09-17 06:32] LABS: Base Excess (BEa) 1.6 mEq/L (-2.0 to +3.0); CO2 Tension 34.7 mmHg (35.0-45.0); Calcium, Ionized (arterial) 1.15 mmol/L (1.12-1.30); Carboxyhemoglobin (COHb) 0.3 gm% (0.0-3.0); Hemoglobin (Hb) 9.6 g/dL (12.0-16.0); Potassium - ABG Lab 3.66 mmol/L (3.70-5.30); pH, Arterial 7.48 (7.35-7.45)
[2021-09-17] MEDS: Sodium Chloride 0.45% 1,000 ML IV SCH ×3 (06:40→23:12)
[2021-09-17 06:52] LABS: #Lymphocytes 1.1 thou/uL (1.20-3.40); #Neutrophils 13.1 thou/uL (1.40-6.50); %Basophils 0.2 % (0.0-1.0); %Eosinophils 0.1 % (0.0-10.0); %Lymphocytes 7.5 % (21.0-51.0); %Monocytes 6.4 % (0.0-10.0); %Neutrophils 85.8 % (42.0-75.0); Hemoglobin 9.5 g/dL (12.0-16.0); Mean Corpuscular HGB CONC 32.1 g/dL (32.0-36.0); Mean Corpuscular Hemoglobin 28.5 pg (27.0-31.0); Mean Corpuscular Volume 88.7 fL (78.0-98.0); Mean Platelet Volume 9.3 fL (7.4-10.4); Platelet Count 202 thou/uL (130-400); RBC Distribution Width 14.2 % (11.5-14.5); Red Blood Cell (RBC) Count 3.33 mill/uL (4.20-5.40); White Blood Cell (WBC) Count 15.2 thou/uL (4.8-10.8)
[2021-09-17 06:55] LABS: INR-International Normal Ratio 1.3; PTT 35.6 sec (22.9-36.1); Prothrombin Time 16.1 sec (12.0-14.7)
[2021-09-17 07:07] LABS: Lactic Acid 1.4 mmol/L (0.5-2.2)
[2021-09-17 07:13] LABS: ALT (SGPT) 38 U/L (8-55); AST (SGOT) 21 U/L (5-34); Albumin 3.2 g/dL (3.5-5.0); Alkaline Phosphatase 97 U/L (40-110); Anion Gap 16 mmol/L (10-20); BUN (Urea Nitrogen) 51 mg/dL (9.8-20.1); Bilirubin, Direct 0.4 mg/dL (0.1-0.3); Bilirubin, Total 0.6 mg/dL (0.2-1.2); CK (CPK) 227 U/L (29-168); Calc. Creatinine Clearance 49 mL/min (70-130); Calcium 9.1 mg/dL (7.8-10.44); Carbon Dioxide 24 mmol/L (22-29); Chloride 124 mmol/L (98-107); Estimated GFR 30; Globulin 2.9 g/dL (2.4-3.5); Glucose 168 mg/dL (70-105); Magnesium 2.8 mg/dL (1.6-2.6); Phosphorus 3.8 mg/dL (2.3-4.7); Potassium 3.8 mmol/L (3.5-5.1); Protein, Total 6.1 g/dL (6.0-8.3); Sodium 160 mmol/L (136-145)
[2021-09-17] MEDS ORDERED: Furosemide 40 MG/4 ML VIAL SLOW IVP SCH (07:30)
[2021-09-17 07:34] LABS: CKMB 1.5 ng/mL (0-6.6)
[2021-09-17] MEDS: niCARdipine 50 MG in Sodium Chloride 0.9% 250 ML 230 ML IV SCH ×3 (07:42→22:09)
[2021-09-17 07:56] LABS: ALV-art Gradient 248.625 mmHg (0-20); Puncture Site Arterial Line
[2021-09-17 11:11] LABS: Actual Bicarbonate (HCO3a) 25.6 mEq/L (22-28); Base Excess (BEa) 2.7 mEq/L (-2.0 to +3.0); CO2 Tension 33.2 mmHg (35.0-45.0); Calcium, Ionized (arterial) 1.16 mmol/L (1.12-1.30); Carboxyhemoglobin (COHb) 0.3 gm% (0.0-3.0); Hemoglobin (Hb) 9.9 g/dL (12.0-16.0); O2 Tension (PaO2), arterial 449.9 mmHg (80.0-100.0); Potassium - ABG Lab 3.48 mmol/L (3.70-5.30); pH, Arterial 7.51 (7.35-7.45)
[2021-09-17 11:14] LABS: Puncture Site Arterial Line
[2021-09-17 12:34] LABS: #Lymphocytes 1.1 thou/uL (1.20-3.40); #Monocytes 0.9 thou/uL (0.11-0.59); #Neutrophils 13.6 thou/uL (1.40-6.50); %Basophils 0.2 % (0.0-1.0); %Eosinophils 0.2 % (0.0-10.0); %Lymphocytes 7.1 % (21.0-51.0); %Monocytes 5.9 % (0.0-10.0); %Neutrophils 86.7 % (42.0-75.0); Hemoglobin 9.7 g/dL (12.0-16.0); Mean Corpuscular HGB CONC 32.1 g/dL (32.0-36.0); Mean Corpuscular Hemoglobin 28.3 pg (27.0-31.0); Mean Corpuscular Volume 88.2 fL (78.0-98.0); Mean Platelet Volume 9.3 fL (7.4-10.4); Platelet Count 207 thou/uL (130-400); RBC Distribution Width 14.2 % (11.5-14.5); Red Blood Cell (RBC) Count 3.41 mill/uL (4.20-5.40); White Blood Cell (WBC) Count 15.7 thou/uL (4.8-10.8)
[2021-09-17 12:35] LABS: INR-International Normal Ratio 1.3; PTT 35.6 sec (22.9-36.1); Prothrombin Time 15.9 sec (12.0-14.7)
[2021-09-17 12:36] LABS: Lactic Acid 1.4 mmol/L (0.5-2.2)
[2021-09-17 12:41] LABS: ALT (SGPT) 48 U/L (8-55); AST (SGOT) 38 U/L (5-34); Albumin 3.2 g/dL (3.5-5.0); Alkaline Phosphatase 108 U/L (40-110); Anion Gap 16 mmol/L (10-20); BUN (Urea Nitrogen) 56 mg/dL (9.8-20.1); Bilirubin, Direct 0.4 mg/dL (0.1-0.3); Bilirubin, Total 0.7 mg/dL (0.2-1.2); CK (CPK) 185 U/L (29-168); Calc. Creatinine Clearance 44 mL/min (70-130); Calcium 8.8 mg/dL (7.8-10.44); Carbon Dioxide 25 mmol/L (22-29); Chloride 121 mmol/L (98-107); Estimated GFR 27; Globulin 3.1 g/dL (2.4-3.5); Glucose 171 mg/dL (70-105); Magnesium 2.6 mg/dL (1.6-2.6); Phosphorus 4.5 mg/dL (2.3-4.7); Potassium 3.6 mmol/L (3.5-5.1); Protein, Total 6.3 g/dL (6.0-8.3); Sodium 158 mmol/L (136-145)
[2021-09-17 12:45] LABS: CKMB 1.3 ng/mL (0-6.6)
[2021-09-17] MEDS ORDERED: ALBUMIN 5% 25 GM/500 ML BAG IVPB SCH (14:30)
[2021-09-17] MEDS: Potassium Chloride 20 MEQ in Premix Bag 1 BAG IVPB SCH ×2 (15:56→16:58)
[2021-09-17 17:02] LABS: Actual Bicarbonate (HCO3a) 24.7 mEq/L (22-28); Base Excess (BEa) 0.3 mEq/L (-2.0 to +3.0); CO2 Tension 38.8 mmHg (35.0-45.0); Calcium, Ionized (arterial) 1.14 mmol/L (1.12-1.30); Carboxyhemoglobin (COHb) 0.3 gm% (0.0-3.0); Hemoglobin (Hb) 9.3 g/dL (12.0-16.0); O2 Tension (PaO2), arterial 486.9 mmHg (80.0-100.0); Potassium - ABG Lab 3.97 mmol/L (3.70-5.30); pH, Arterial 7.42 (7.35-7.45)
[2021-09-17 17:03] LABS: Puncture Site Arterial Line
[2021-09-17 18:10] LABS: #Monocytes 0.9 thou/uL (0.11-0.59); #Neutrophils 12.7 thou/uL (1.40-6.50); %Basophils 0.2 % (0.0-1.0); %Eosinophils 0.2 % (0.0-10.0); %Lymphocytes 7.1 % (21.0-51.0); %Monocytes 5.8 % (0.0-10.0); %Neutrophils 86.7 % (42.0-75.0); Hemoglobin 8.5 g/dL (12.0-16.0); Mean Corpuscular HGB CONC 32.3 g/dL (32.0-36.0); Mean Corpuscular Hemoglobin 28.5 pg (27.0-31.0); Mean Corpuscular Volume 88.2 fL (78.0-98.0); Mean Platelet Volume 9.1 fL (7.4-10.4); Platelet Count 172 thou/uL (130-400); RBC Distribution Width 14.2 % (11.5-14.5); Red Blood Cell (RBC) Count 2.97 mill/uL (4.20-5.40); White Blood Cell (WBC) Count 14.6 thou/uL (4.8-10.8)
[2021-09-17 18:24] LABS: INR-International Normal Ratio 1.3; PTT 33.9 sec (22.9-36.1); Prothrombin Time 16.3 sec (12.0-14.7)
[2021-09-17 18:35] LABS: ALT (SGPT) 52 U/L (8-55); AST (SGOT) 50 U/L (5-34); Albumin 3.5 g/dL (3.5-5.0); Alkaline Phosphatase 108 U/L (40-110); Anion Gap 16 mmol/L (10-20); BUN (Urea Nitrogen) 57 mg/dL (9.8-20.1); Bilirubin, Direct 0.6 mg/dL (0.1-0.3); Calc. Creatinine Clearance 45 mL/min (70-130); Calcium 8.8 mg/dL (7.8-10.44); Carbon Dioxide 24 mmol/L (22-29); Chloride 121 mmol/L (98-107); Estimated GFR 28; Globulin 2.7 g/dL (2.4-3.5); Glucose 153 mg/dL (70-105); Magnesium 2.6 mg/dL (1.6-2.6); Phosphorus 4.3 mg/dL (2.3-4.7); Potassium 4.4 mmol/L (3.5-5.1); Protein, Total 6.2 g/dL (6.0-8.3); Sodium 157 mmol/L (136-145)
[2021-09-17 18:36] LABS: Bilirubin Negative (Negative); Blood, Urine Trace (Negative); Clarity Clear (Clear); Glucose, Urine (Dipstick) Normal (Negative); Ketone, Urine Negative (Negative); Leukocyte Negative Leu/uL (Negative); Nitrite Negative (Negative); Protein, Urine (Dipstick) Negative (Neg-Trace); RBC/HPF None Seen HPF (0-3); Specific Gravity, Urine 1.012 (1.002-1.036); Squamous Epithelial None Seen HPF (0-3); Urobilinogen Normal mg/dL (Less than 2); WBC/HPF 0-3 HPF (0-3)
[2021-09-17 18:37] LABS: Bacteria/HPF 1+ HPF (None Seen)
[2021-09-17 23:28] LABS: Actual Bicarbonate (HCO3a) 22.4 mEq/L (22-28); Base Excess (BEa) -1.2 mEq/L (-2.0 to +3.0); CO2 Tension 32.3 mmHg (35.0-45.0); Calcium, Ionized (arterial) 1.14 mmol/L (1.12-1.30); Carboxyhemoglobin (COHb) 0.3 gm% (0.0-3.0); Hemoglobin (Hb) 8.3 g/dL (12.0-16.0); O2 Tension (PaO2), arterial 499.3 mmHg (80.0-100.0); Potassium - ABG Lab 3.58 mmol/L (3.70-5.30); pH, Arterial 7.46 (7.35-7.45)
[2021-09-17 23:29] LABS: Puncture Site Arterial Line
[2021-09-17 23:30] LABS: ALV-art Gradient 173.325 mmHg (0-20)
[2021-09-18 00:38] LABS: INR-International Normal Ratio 1.3; PTT 34.4 sec (22.9-36.1); Prothrombin Time 16.2 sec (12.0-14.7)
[2021-09-18 00:48] LABS: ALT (SGPT) 49 U/L (8-55); AST (SGOT) 37 U/L (5-34); Albumin 3.4 g/dL (3.5-5.0); Alkaline Phosphatase 102 U/L (40-110); Anion Gap 17 mmol/L (10-20); BUN (Urea Nitrogen) 56 mg/dL (9.8-20.1); Bilirubin, Direct 0.8 mg/dL (0.1-0.3); Bilirubin, Total 1.2 mg/dL (0.2-1.2); Calc. Creatinine Clearance 49 mL/min (70-130); Calcium 8.7 mg/dL (7.8-10.44); Carbon Dioxide 23 mmol/L (22-29); Chloride 123 mmol/L (98-107); Estimated GFR 30; Globulin 2.6 g/dL (2.4-3.5); Glucose 191 mg/dL (70-105); Magnesium 2.5 mg/dL (1.6-2.6); Phosphorus 4.1 mg/dL (2.3-4.7); Potassium 3.6 mmol/L (3.5-5.1); Sodium 159 mmol/L (136-145)
[2021-09-18] MEDS: Potassium Chloride 20 MEQ in Premix Bag 1 BAG IVPB SCH ×2 (01:22→02:12)
[2021-09-18] MEDS: Albuterol Sulfate 2.5 mg/0.5 ml Neb NEB SCH ×4 (02:40→14:08)
[2021-09-18] MEDS: HUMULIN R 100 UNITS in Sodium Chloride 0.9% 100 ML IVPB SCH (03:36)
[2021-09-18] MEDS: niCARdipine 50 MG in Sodium Chloride 0.9% 250 ML 230 ML IV SCH ×2 (04:56→14:23)
[2021-09-18] MEDS: Hydrocortisone Sod Succ/PF 100 mg/2 ml Vial IVP SCH ×2 (05:00→14:23)
[2021-09-18] MEDS: Piperacillin/Tazobactam 3.375 GM in Sodium Chloride 0.9% 100 ML IVPB SCH ×2 (05:00→12:50)
[2021-09-18 06:35] LABS: INR-International Normal Ratio 1.3; Prothrombin Time 15.9 sec (12.0-14.7)
[2021-09-18 06:45] LABS: Lactic Acid 0.8 mmol/L (0.5-2.2)
[2021-09-18 06:53] LABS: ALT (SGPT) 45 U/L (8-55); AST (SGOT) 30 U/L (5-34); Albumin 3.3 g/dL (3.5-5.0); Alkaline Phosphatase 98 U/L (40-110); Anion Gap 15 mmol/L (10-20); BUN (Urea Nitrogen) 55 mg/dL (9.8-20.1); Bilirubin, Direct 0.8 mg/dL (0.1-0.3); Bilirubin, Total 1.3 mg/dL (0.2-1.2); Calc. Creatinine Clearance 55 mL/min (70-130); Calcium 8.7 mg/dL (7.8-10.44); Carbon Dioxide 23 mmol/L (22-29); Chloride 123 mmol/L (98-107); Estimated GFR 33; Globulin 2.6 g/dL (2.4-3.5); Glucose 151 mg/dL (70-105); Magnesium 2.6 mg/dL (1.6-2.6); Phosphorus 3.9 mg/dL (2.3-4.7); Potassium 4.2 mmol/L (3.5-5.1); Protein, Total 5.9 g/dL (6.0-8.3); Sodium 157 mmol/L (136-145)
[2021-09-18 07:32] LABS: Actual Bicarbonate (HCO3a) 25.1 mEq/L (22-28); Base Excess (BEa) 1.5 mEq/L (-2.0 to +3.0); CO2 Tension 35.3 mmHg (35.0-45.0); Calcium, Ionized (arterial) 1.14 mmol/L (1.12-1.30); Carboxyhemoglobin (COHb) 0.2 gm% (0.0-3.0); Hemoglobin (Hb) 7.8 g/dL (12.0-16.0); O2 Tension (PaO2), arterial 461.5 mmHg (80.0-100.0); Potassium - ABG Lab 4.05 mmol/L (3.70-5.30); pH, Arterial 7.47 (7.35-7.45)
[2021-09-18 08:17] LABS: #Lymphocytes 1.1 thou/uL (1.20-3.40); #Monocytes 0.8 thou/uL (0.11-0.59); #Neutrophils 12.7 thou/uL (1.40-6.50); %Basophils 0.3 % (0.0-1.0); %Eosinophils 0.2 % (0.0-10.0); %Lymphocytes 7.3 % (21.0-51.0); %Monocytes 5.2 % (0.0-10.0); Hemoglobin 7.6 g/dL (12.0-16.0); Mean Corpuscular HGB CONC 31.3 g/dL (32.0-36.0); Mean Corpuscular Volume 89.5 fL (78.0-98.0); Platelet Count 148 thou/uL (130-400); RBC Distribution Width 14.2 % (11.5-14.5); Red Blood Cell (RBC) Count 2.71 mill/uL (4.20-5.40); White Blood Cell (WBC) Count 14.6 thou/uL (4.8-10.8)
[2021-09-18 09:55] LABS: Bacteria/HPF None Seen HPF (None Seen); Bilirubin Negative (Negative); Blood, Urine Trace (Negative); Clarity Clear (Clear); Glucose, Urine (Dipstick) Normal (Negative); Ketone, Urine Negative (Negative); Leukocyte Negative Leu/uL (Negative); Nitrite Negative (Negative); Protein, Urine (Dipstick) Negative (Neg-Trace); RBC/HPF 0-3 HPF (0-3); Specific Gravity, Urine 1.011 (1.002-1.036); Squamous Epithelial 0-3 HPF (0-3); Urobilinogen Normal mg/dL (Less than 2); WBC/HPF 0-3 HPF (0-3); pH, Urine 5.5 (5.0-9.0)
[2021-09-18 10:20] VITALS: BP 160/66
[2021-09-18 11:53] LABS: Puncture Site Arterial Line
[2021-09-18 11:54] LABS: ALV-art Gradient 207.375 mmHg (0-20)
[2021-09-18] MEDS: Sodium Chloride 0.45% 1,000 ML IV SCH (12:48)
[2021-09-18 13:20] LABS: INR-International Normal Ratio 1.2; Prothrombin Time 15.6 sec (12.0-14.7)
[2021-09-18 13:25] LABS: Lactic Acid 0.7 mmol/L (0.5-2.2)
[2021-09-18 13:29] LABS: ALT (SGPT) 44 U/L (8-55); AST (SGOT) 29 U/L (5-34); Albumin 3.2 g/dL (3.5-5.0); Alkaline Phosphatase 98 U/L (40-110); Anion Gap 15 mmol/L (10-20); BUN (Urea Nitrogen) 54 mg/dL (9.8-20.1); Bilirubin, Direct 0.7 mg/dL (0.1-0.3); Bilirubin, Total 1.2 mg/dL (0.2-1.2); Calc. Creatinine Clearance 59 mL/min (70-130); Calcium 8.8 mg/dL (7.8-10.44); Carbon Dioxide 24 mmol/L (22-29); Chloride 123 mmol/L (98-107); Estimated GFR 37; Globulin 2.6 g/dL (2.4-3.5); Glucose 156 mg/dL (70-105); Magnesium 2.6 mg/dL (1.6-2.6); Phosphorus 4.1 mg/dL (2.3-4.7); Protein, Total 5.8 g/dL (6.0-8.3); Sodium 158 mmol/L (136-145)
[2021-09-18 13:43] LABS: Actual Bicarbonate (HCO3a) 22.6 mEq/L (22-28); CO2 Tension 32.5 mmHg (35.0-45.0); Calcium, Ionized (arterial) 1.13 mmol/L (1.12-1.30); Hemoglobin (Hb) 7.1 g/dL (12.0-16.0); O2 Tension (PaO2), arterial 448.2 mmHg (80.0-100.0); Potassium - ABG Lab 3.85 mmol/L (3.70-5.30); pH, Arterial 7.46 (7.35-7.45)
[2021-09-18 13:46] LABS: ALV-art Gradient 224.175 mmHg (0-20); Puncture Site Arterial Line
[2021-09-18] MEDS ORDERED: Heparin 10,000 UNITS/ 10 ML VIAL ONE ×2 (14:53)
[2021-09-18] MEDS ORDERED: Norepinephrine 4 MG/4 ML VIAL ONE (16:27)
[2021-09-18] MEDS ORDERED: Phenylephrine 10 MG/ML VIAL ONE (16:27)
[2021-09-21 19:14] LABS: CK1-BB 0 % (0); CK2-MB 0 % (0-3); CK3-MM 100 % (97-100); Creatine Kinase Total 324 U/L (32-182); Macro I 0 % (Not Observed); Macro II 0 % (Not Observed)
[2021-09-21 19:14] LABS: CK1-BB 0 % (0); CK2-MB 0 % (0-3); CK3-MM 100 % (97-100); Creatine Kinase Total 234 U/L (32-182); Macro I 0 % (Not Observed); Macro II 0 % (Not Observed)
[2021-09-21 19:14] LABS: CK1-BB 0 % (0); CK2-MB 0 % (0-3); CK3-MM 100 % (97-100); Creatine Kinase Total 114 U/L (32-182); Macro I 0 % (Not Observed); Macro II 0 % (Not Observed)
[2021-09-21 19:14] LABS: CK1-BB 0 % (0); CK2-MB 0 % (0-3); CK3-MM 100 % (97-100); Creatine Kinase Total 101 U/L (32-182); Macro I 0 % (Not Observed); Macro II 0 % (Not Observed)
[2021-09-21 19:14] LABS: CK1-BB 0 % (0); CK2-MB 0 % (0-3); CK3-MM 100 % (97-100); Creatine Kinase Total 125 U/L (32-182); Macro I 0 % (Not Observed); Macro II 0 % (Not Observed)
[2021-09-21 19:14] LABS: CK1-BB 0 % (0); CK2-MB 0 % (0-3); CK3-MM 100 % (97-100); Creatine Kinase Total 193 U/L (32-182); Macro I 0 % (Not Observed); Macro II 0 % (Not Observed)
[2021-09-21 19:14] LABS: CK1-BB 0 % (0); CK2-MB 0 % (0-3); CK3-MM 100 % (97-100); Creatine Kinase Total 141 U/L (32-182); Macro I 0 % (Not Observed); Macro II 0 % (Not Observed)
[2021-09-21 19:14] LABS: CK1-BB 0 % (0); CK2-MB 0 % (0-3); CK3-MM 100 % (97-100); Creatine Kinase Total 365 U/L (32-182); Macro I 0 % (Not Observed); Macro II 0 % (Not Observed)
[2021-09-21 19:14] LABS: CK1-BB 0 % (0); CK2-MB 0 % (0-3); CK3-MM 100 % (97-100); Creatine Kinase Total 268 U/L (32-182); Macro I 0 % (Not Observed); Macro II 0 % (Not Observed)
== END 2021-09-18 16:50 | disposition expired ==
LOC: CCU 12:00 → SDC 12:00
DX: Z00.5 Encounter for examination of potential donor of organ and tissue (principal); I08.1 Rheumatic disorders of both mitral and tricuspid valves; J90 Pleural effusion, not elsewhere classified; J98.11 Atelectasis
CPT/HCPCS: 36415; 36416; 36600; 71045; 71250; 74177; 80053; 81001; 81015; 82150; 82248; 82550; 82552; 82553; 82805; 83036; 83605; 83690; 83735; 84100; 84484; 85025; 85384; 85610; 85730; 87086; 87205; 93005; 93010; 93306; 93460; 94003; 94640; 94667; J1644; J1720; J1815; J1940; J2370; J2543; J3430; J3480; J3490; J7050; J7611; P9045; Q9967